=== PATIENT | female | born 1985 | race Caucasian/White ===

== ENCOUNTER 2024-01-17 10:41 | Emergency (ER) | payer MEDICAID ==
[~2024-01-17] VITALS: Ht 163.8 cm; Wt 71.1 kg
[2024-01-17 13:38] VITALS: PULSE 63; RESP 18; O2SAT 99
[2024-01-17 14:44] LABS: Basophils # (auto) 0 10 ^3/uL (0-0.2); Basophils % (auto) 0.5 % (0.0-2.0); Eosinophils # (auto) 0.3 10 ^3/uL (0-0.8); Eosinophils % (auto) 4.2 % (0.0-7.0); Hematocrit 39.1 % (36.0-46.0); Lymphocytes # (auto) 2.2 10 ^3/uL (0.4-5.4); Lymphocytes % (auto) 33.6 % (10.0-50.0); Mean Corpuscular Hemoglobin 28.1 pg (28.0-32.0); Mean Corpuscular Hgb Conc. 33.2 g/dL (32.0-36.0); Mean Corpuscular Volume 84.8 fL (80.0-100.0); Monocytes # (auto) 0.4 10 ^3/uL (0-1.3); Neutrophils # (auto) 3.7 10 ^3/uL (1.6-8.6); Neutrophils % (auto) 55.7 % (37.0-80.0); Red Blood Cells 4.62 10^6/uL (4.0-5.20); Red Cell Distribution Width 14.7 % (11.8-14.3); White Blood Cell 6.7 10^3/uL (4.4-10.8)
[2024-01-17 14:59] LABS: INR 1.03 (0.9-1.15); Partial Thromboplastin Time 25.9 SEC (24.5-34.5); Prothrombin Time 10.9 sec (9.3-11.8)
[2024-01-17 15:02] LABS: Chloride 107 mmol/L (98-107); Sodium 140 mmol/L (136-145)
[2024-01-17 15:03] LABS: Anion Gap 7 (5-15); Carbon Dioxide 26 mmol/L (20-30)
[2024-01-17 15:04] LABS: Calcium 9.3 mg/dL (8.7-10.4)
[2024-01-17 15:08] LABS: Glucose 113 mg/dL (74-106)
[2024-01-17 15:09] LABS: BUN/Creatinine Ratio 23.1 (10.0-20.0); Blood Urea Nitrogen 15 mg/dL (9-23)
[2024-01-17] MEDS: IOHEXOL 300 MG/ML 100ML BOTTLE IJ ONE (15:49)
[2024-01-17 18:42] VITALS: BP 114/54; PULSE 68; RESP 17; TEMP 98.9; O2SAT 99
== END 2024-01-17 18:47 | disposition home or self-care (01) ==
LOC: ER 10:41
DX: S05.12XA Contusion of eyeball and orbital tissues, left eye, initial encounter (principal); R10.2 Pelvic and perineal pain; Z98.890 Other specified postprocedural states; X58.XXXA Exposure to other specified factors, initial encounter; Y93.89 Activity, other specified; Y92.89 Other specified places as the place of occurrence of the external cause; Y99.8 Other external cause status
CPT/HCPCS: 36415; 70450; 70482; 80048; 84702; 85025; 85610; 85730; 99285; Q9967